=== PATIENT | male | born 1990 | race Caucasian/White ===

== ENCOUNTER → 2016-11-05 | Outpatient (CLI) | payer MEDICARE, MEDICAID ==
[~2016-11-05] MED LIST: /AMLO25TA PO; /NEPHROTA PO; BACITAB3 PO; BACTDSTA PO; COLA50CA3 PO; DARB10SYRN IV; DRIS1CAP PO; DULC5TAB PO; EPOG3000 IJ; FOLI1TAB86 PO; HEPARIN 1,000 UNITS/ML 10ML VIAL (FOR RADIOLOGY& DIALYSIS ONLY) As Ordered ONE; ISOVUE-300 61% 50ML VIAL (Q9967) As Ordered ONE; LOPR50TA PO; MELO7.5S PO; METO25TAB PO; MICA40TA PO; MIDAZOLAM INJ 2 MG/2 ML VIAL (J2250) As Ordered ONE; MINO5SOL6 PO; NORCO, ANEXSIA 5/325MG TABLET (HYDROcodone/ACETAMINOPHEN) As Ordered ONE; NORCO, ANEXSIA 5/325MG TABLET (HYDROcodone/ACETAMINOPHEN) PO PRN; NORMINJ22 IV; NS 1,000 ML IV SCH; OMEP20CA3 PO; ONDANSETRON 4MG/2ML VIAL (J2405) IV PRN; SENS60TA PO; SODIUM BICARBONATE 8.4% INJ 50MEQ 50 ML VIAL As Ordered ONE; TYLE325T5 PO; VANC50VL IV; VELP5CHW PO; VELPHORO PO; VICO5TAB16 PO; VITACAP9 PO; XANA0.25 PO; [UNRECOGNIZED DRUG - CODE] IV; fentaNYL 100 MCG/2 ML INJECTION (J3010) As Ordered ONE; fentaNYL 100 MCG/2 ML INJECTION (J3010) IV PRN
[2016-11-05 11:50] VITALS: BP 153/95
--- NOTE | 2016-11-05 14:06 | REPKIM ---
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 PROCEDURES PERFORMED: 1. Hemodialysis Right Arm Fistulogram 2. Right internal jugular venogram and (central) superior vena cavagram 3. Right brachiocephalic vein angioplasty 4. Completion superior vena cavagram INTERVENTIONALIST: Tricia Kunz MD CONSENT: The risks, benefits and alternatives to the procedure were explained to the patient, and informed written consent was obtained. SEDATION: Sedation and analgesia was provided by the Anesthesiology Dept. MEDICATIONS: Local Lidocaine, Heparin 3000 units IV EBL: 10 mL FLUORO TIME: 11.3 minutes CONTRAST: 80 mL Isovue 300 DEVICE USED: 14mmx 4 cm DIRECTOR PART balloon [id number] PROCEDURE/FINDINGS: The patient was brought to the interventional radiology suite where a timeout procedure was performed. The patient was placed in the supine position. The right forearm was prepped and draped in a usual sterile fashion. The cephalic vein AVF outflow vein just above the elbow was accessed with a micropuncture needle. Using this access a 5-Maltese catheter was introduced with its tip directed towards the central veins. Contrast was injected and fistulogram and central venogram were performed. This showed well developed cephalic outflow vein as well as multiple competing venous collaterals seen in the right upper arm. The cephalic outflow vein showed multiple varices or prominent aneurysmal dilation. The stented portion of the right BCV is reoccluded associated with multiple venous collaterals in the neck region. The right neck was then prepped and draped in a sterile fashion. Ultrasound showed the right IJ vein is very small but patent and compressible. After local anesthetic was established, the right IJ vein was accessed with micropuncture needle and ultrasound guidance. Using this access a 7-Maltese sheath catheter was inserted using the Seldinger technique. Contrast was injected and central venogram was obtained. This showed near occlusive stenosis involving the previously stented right brachiocephalic vein associated with retrograde flow in the internal jugular vein. Using this access, a guidewire was advanced across the BCV stenosis into the right atrium and then into the inferior vena cava. Wire exchange was then performed and a stiff guidewire was then established. A total of 3000 units of Heparin was intravenously administered. The near occlusive right brachiocephalic vein stenosis was dilated with 14mm DIRECTOR PART balloon. Post angioplasty internal jugular central venogram showed excellent results with no significant residual stenosis or flow limiting intimal flap. The right IJ sheath and arm AV fistula catheter were removed and hemostasis was achieved by manual compression over the insertion sites. The patient tolerated the procedure well with no immediate complications. This procedure was performed with ultrasound and fluoroscopic guidance. Dr. Kunz was present. IMPRESSION: 1. ESRD with a patent right arm AVF associated well developed cephalic outflow vein. There are multiple varices or prominent aneurysmal dilation involving the cephalic outflow vein. There are multiple competing venous collaterals in the upper arm. There is near occlusive right BCV (previously stented) associated with multiple venous collaterals seen in the neck region. 2. Central venogram via the right IJ access demonstrates near occlusive stenosis involving the stented right brachiocephalic vein associated with retrograde flow of contrast in the internal jugular vein. Successful dilation of the right brachiocephalic vein with 14mm angioplasty balloon as discussed above. Completion central venogram via the right IJ access demonstrates widely patent BCV/SVC with no significant residual stenosis or flow limiting intimal flap. There is jehovah's witness of antegrade flow of contrast in the internal jugular vein after DIRECTOR PART of the BCV as discussed above. PLAN: Follow-up dialysis shunt maintenance study in 3-5 months. If clinically concerned of the right upper arm cephalic outflow vein varices or relatively significant aneurysmal dilations, this could be treated with covered stent. cc: MD KATHY Levi
== END | disposition home or self-care (01) ==
LOC: M IRPRO 08:24
PROVIDERS: ATTEND Internal Medicine Nephrology
DX: T82.856A Stenosis of peripheral vascular stent, initial encounter (principal); N18.6 End stage renal disease; Z99.2 Dependence on renal dialysis
CPT/HCPCS: 36902; C1725; C1769; C1894; J2250; J3010; Q9967

== ENCOUNTER → 2017-01-21 | Outpatient (CLI) | payer MEDICARE, MEDICAID ==
[~2017-01-21] MED LIST changes: +LIDOCAINE 2% MDV 20 ML VIAL As Ordered ONE; -NORCO, ANEXSIA 5/325MG TABLET (HYDROcodone/ACETAMINOPHEN) As Ordered ONE; -NORCO, ANEXSIA 5/325MG TABLET (HYDROcodone/ACETAMINOPHEN) PO PRN; -NS 1,000 ML IV SCH; -ONDANSETRON 4MG/2ML VIAL (J2405) IV PRN; -SODIUM BICARBONATE 8.4% INJ 50MEQ 50 ML VIAL As Ordered ONE; -fentaNYL 100 MCG/2 ML INJECTION (J3010) IV PRN
[2017-01-21 15:45] VITALS: BP 124/64
--- NOTE | 2017-01-21 18:17 | REPKIM ---
CLINICAL HISTORY: Patient with a history end stage renal disease on hemodialysis via right forearm AV fistula, history of recanalization/stent placement of the right BCV/SVC presents for a right arm fistulogram, central venogram possible intervention. PROCEDURES PERFORMED: 1. Hemodialysis Right Arm Fistulogram 2. Right internal jugular venogram and (central) superior vena cavagram 3. Right brachiocephalic vein angioplasty 4. Completion superior vena cavagram INTERVENTIONALIST: Tricia Kunz MD CONSENT: The risks, benefits and alternatives to the procedure were explained to the patient, and informed written consent was obtained. SEDATION: Sedation and analgesia was provided by the Anesthesiology Dept. MEDICATIONS: Local Lidocaine, Heparin 3000 units IV EBL: 10 mL FLUORO TIME: 6.8 minutes CONTRAST: 80 mL Isovue 300 DEVICE USED: 12mmx 4 cm SPRAY DRIER balloon Lot#[id number] PROCEDURE/FINDINGS: The patient was brought to the interventional radiology suite where a timeout procedure was performed. The patient was placed in the supine position. The right forearm was prepped and draped in a usual sterile fashion. The cephalic vein AVF outflow vein just above the elbow was accessed with a micropuncture needle. Using this access a 5-Australian catheter was introduced with its tip directed towards the central veins. Contrast was injected and fistulogram and central venogram were performed. This showed well developed very tortuous cephalic outflow vein as well as venous collaterals seen in the right upper arm. The cephalic outflow vein showed significant tortuosity with multiple varices or prominent aneurysmal dilation. The stented portion of the right BCV is reoccluded associated with multiple venous collaterals in the neck region. The right neck was then prepped and draped in a sterile fashion. Ultrasound showed the right IJ vein is patent and compressible. After local anesthetic was established, the right IJ vein was accessed with micropuncture needle and ultrasound guidance. Using this access a 7-Australian sheath catheter was inserted using the Seldinger technique. Using this access, a guidewire was successfully advanced across the BCV occlusion into the right atrium and then into the inferior vena cava. Wire exchange was then performed and a stiff guidewire was then established. A total of 3000 units of Heparin was intravenously administered. The occlusive right brachiocephalic vein stenosis was dilated with 12 mm SPRAY DRIER balloon. Post angioplasty central venogram showed restored flow with no significant residual stenosis or flow limiting intimal flap. The right IJ sheath and arm AV fistula catheter were removed and hemostasis was achieved by manual compression over the insertion sites. The patient tolerated the procedure well with no immediate complications. This procedure was performed with ultrasound and fluoroscopic guidance. Dr. Kunz was present. IMPRESSION: 1. ESRD with a patent right arm AVF. The cephalic outflow vein is well developed and markedly tortuous. There are multiple varices or prominent aneurysmal dilation involving the cephalic outflow vein. 2. Complete occlusion of the right BCV associated with multiple venous collaterals seen in the neck region. 3. Successful recanalization and dilation of the right brachiocephalic vein with 12 mm angioplasty balloon as discussed above. Completion central venogram demonstrates restored flow with no significant residual stenosis or flow limiting intimal flap. The SVC is patent. PLAN: Follow-up dialysis shunt maintenance study in 3 months. cc: MD KATHY Levi
== END | disposition home or self-care (01) ==
LOC: M IRPRO 12:01
DX: T82.856A Stenosis of peripheral vascular stent, initial encounter (principal); N18.6 End stage renal disease; Z99.2 Dependence on renal dialysis
CPT/HCPCS: 36011; 36901; 37248; C1725; C1769; C1887; C1894; J2250; J3010; Q9967

== ENCOUNTER → 2017-07-15 | Outpatient (CLI) | payer MEDICARE, MEDICAID ==
[~2017-07-15] MED LIST changes: +BACITAB PO; -BACITAB3 PO; -HEPARIN 1,000 UNITS/ML 10ML VIAL (FOR RADIOLOGY& DIALYSIS ONLY) As Ordered ONE; -LIDOCAINE 2% MDV 20 ML VIAL As Ordered ONE
--- NOTE | 2017-07-23 12:08 | REPIR ---
DATE OF PROCEDURE: 07/15/2017 PREPROCEDURE DIAGNOSES: End stage renal disease, dysfunctional right brachiocephalic arteriovenous fistula. POSTPROCEDURE DIAGNOSES: End stage renal disease, dysfunctional right brachiocephalic arteriovenous fistula. PROCEDURE: Right brachiocephalic arteriovenous fistulogram. SURGEON: Dr. Galen Butler. STOGY MAKER: Pooja Arriaza and Marsha Wu. ANESTHESIA: Local with 1 mL of 2% lidocaine. ESTIMATED BLOOD LOSS: FLUORO TIME: 2.222 minutes. CONTRAST: 18 mL. HEPARIN: None. COMPLICATIONS: None. DRAINS: None. SPECIMENS: None. IMPLANTS: None. 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 Patient now follows up with continued pulsatility within the fistula as well as some increased size of the aneurysmal portion of the cephalic vein. Patient will undergo a fistulogram with possible angioplasty and stent. Risks, benefits and alternative treatment options were discussed with the patient. PROCEDURE: The patient was taken to the angiography suite and placed supine on the angiography room table and then the right upper extremity was prepped and draped in a standard surgical fashion. A time out was then completed confirming the correct patient, procedure and laterality after which the right brachiocephalic arteriovenous fistula was cannulated with a micropuncture needle after anesthetizing the overlying skin with 1% lidocaine. The micropuncture wire was advanced through the micropuncture needle which was upsized to a micropuncture sheath. A fistulogram was performed through the micropuncture sheath showing no intervention was required. The sheath was removed and manual compression applied to deep puncture site for hemostasis. Dressings were then applied. Patient tolerated the procedure well. All instrument, sponge and needle counts were correct at the end of the case. There were no complications. Dr. Butler was present for and directed the entire case. Patient was transferred to the holding area and subsequently discharged in stable condition. RADIOLOGIC SUPERVISION INTERPRETATION: The fistulogram showed the cephalic vein to be widely patent into the subclavian vein. The subclavian vein was patent into the innominate vein where there was occlusion of the innominate vein superior vena junction which had previously been stented.
== END | disposition home or self-care (01) ==
LOC: M IRPRO 11:58
PROVIDERS: ATTEND Surgery Vascular Surgery
DX: T82.898A Other specified complication of vascular prosthetic devices, implants and grafts, initial encounter (principal); N18.6 End stage renal disease; Z99.2 Dependence on renal dialysis
CPT/HCPCS: 36901; C1894; J2250; J3010; Q9967

== ENCOUNTER → 2017-09-11 | Outpatient (CLI) | payer MEDICARE, MEDICAID ==
[~2017-09-11] MED LIST changes: -/AMLO25TA PO; -/NEPHROTA PO; -BACITAB PO; -BACTDSTA PO; -COLA50CA3 PO; -DARB10SYRN IV; -DRIS1CAP PO; -DULC5TAB PO; -EPOG3000 IJ; -FOLI1TAB86 PO; +HEPARIN 1,000 UNITS/ML 10ML VIAL (FOR RADIOLOGY& DIALYSIS ONLY) As Ordered; +ISOVUE-300 61% 50ML VIAL (Q9967) As Ordered; -ISOVUE-300 61% 50ML VIAL (Q9967) As Ordered ONE; -LOPR50TA PO; -MELO7.5S PO; -METO25TAB PO; -MICA40TA PO; +MIDAZOLAM INJ 2 MG/2 ML VIAL (J2250) As Ordered; -MIDAZOLAM INJ 2 MG/2 ML VIAL (J2250) As Ordered ONE; -MINO5SOL6 PO; -NORMINJ22 IV; -OMEP20CA3 PO; -SENS60TA PO; -TYLE325T5 PO; -VANC50VL IV; -VELP5CHW PO; -VELPHORO PO; -VICO5TAB16 PO; -VITACAP9 PO; -XANA0.25 PO; -[UNRECOGNIZED DRUG - CODE] IV; +fentaNYL 100 MCG/2 ML INJECTION (J3010) As Ordered; -fentaNYL 100 MCG/2 ML INJECTION (J3010) As Ordered ONE
== END | disposition home or self-care (01) ==
LOC: M IRPRO 13:03
DX: T82.856A Stenosis of peripheral vascular stent, initial encounter (principal); T82.898A Other specified complication of vascular prosthetic devices, implants and grafts, initial encounter; I82.290 Acute embolism and thrombosis of other thoracic veins; N18.6 End stage renal disease; Z99.2 Dependence on renal dialysis
CPT/HCPCS: 36901

== ENCOUNTER → 2017-09-18 | Outpatient (CLI) | payer MEDICARE, MEDICAID ==
[~2017-09-18] MED LIST changes: +LIDOCAINE 2% MDV 20 ML VIAL As Ordered; +PROTAMINE SULF INJ 50 MG/5 ML VIAL (J2720) As Ordered
== END | disposition home or self-care (01) ==
LOC: M IRPRO 10:04
DX: I82.210 Acute embolism and thrombosis of superior vena cava (principal); I82.290 Acute embolism and thrombosis of other thoracic veins; T82.898A Other specified complication of vascular prosthetic devices, implants and grafts, initial encounter; N18.6 End stage renal disease
CPT/HCPCS: 37248

== ENCOUNTER → 2017-10-02 | Outpatient (CLI) | payer MEDICARE, MEDICAID ==
[~2017-10-02] MED LIST changes: -HEPARIN 1,000 UNITS/ML 10ML VIAL (FOR RADIOLOGY& DIALYSIS ONLY) As Ordered; -ISOVUE-300 61% 50ML VIAL (Q9967) As Ordered; +ISOVUE-370 76% 100ML VIAL (Q9967) As Ordered; -LIDOCAINE 2% MDV 20 ML VIAL As Ordered; -MIDAZOLAM INJ 2 MG/2 ML VIAL (J2250) As Ordered; -PROTAMINE SULF INJ 50 MG/5 ML VIAL (J2720) As Ordered; -fentaNYL 100 MCG/2 ML INJECTION (J3010) As Ordered
== END ==
LOC: M RAD 12:30
DX: N18.6 End stage renal disease (principal); F17.218 Nicotine dependence, cigarettes, with other nicotine-induced disorders; I82.211 Chronic embolism and thrombosis of superior vena cava
CPT/HCPCS: Q9967

== ENCOUNTER 2018-07-02 15:50 | Inpatient (IN) | payer MEDICARE, MEDICAID ==
[2018-07-02 17:10] LABS: BASO % 0.4 % (0.0-1.0); EOS % 0.7 % (0.0-3.0); HEMATOCRIT 32.4 % (42.0-52.0); HEMOGLOBIN 10.9 g/dl (13.5-17.5); IMMATURE GRANULOCYTE % 0.2 % (0-3.0); LYMPH # 0.7 10^3/uL (1.5-4.5); LYMPH % 12.2 % (24.0-44.0); MEAN CORPUSCULAR HEMOGLOBIN 30.5 pg (27.0-33.0); MEAN CORPUSCULAR HGB CONC 33.6 g/dl (32.0-36.5); MEAN CORPUSCULAR VOLUME 90.8 fl (80.0-96.0); MONO # 0.4 10^3/uL (0.0-0.8); MONO % 6.8 % (0.0-5.0); NEUTROPHILS # 4.4 10^3/uL (1.8-7.7); NEUTROPHILS % 79.7 % (36.0-66.0); PLATELET COUNT, AUTOMATED 114 10^3/uL (150-450); RED BLOOD COUNT 3.57 10^6/uL (4.30-6.10); RED CELL DISTRIBUTION WIDTH 12.4 % (11.5-14.5); WHITE BLOOD COUNT 5.6 10^3/uL (4.0-10.0)
[2018-07-02 17:39] LABS: ALBUMIN/GLOBULIN RATIO 1.21 (1.00-1.93); ALKALINE PHOSPHATASE 140 U/L (45-117); ALT/SGPT 13 U/L (12-78); ANION GAP 12 MEQ/L (8-16); AST/SGOT 13 U/L (7-37); BILIRUBIN,DIRECT 0.1 MG/DL (0.0-0.2); BILIRUBIN,TOTAL 0.4 MG/DL (0.2-1.0); BLOOD UREA NITROGEN 39 MG/DL (7-18); CALCIUM LEVEL 7.9 MG/DL (8.5-10.1); CARBON DIOXIDE LEVEL 29 MEQ/L (21-32); CHLORIDE LEVEL 97 MEQ/L (98-107); CREATININE FOR GFR 9.11 MG/DL (0.70-1.30); GLOMERULAR FILTRATION RATE 7.3 (>60); GLUCOSE, FASTING 122 MG/DL (70-100); POTASSIUM SERUM 4.3 MEQ/L (3.5-5.1); SODIUM LEVEL 138 MEQ/L (136-145); TOTAL PROTEIN 7.3 GM/DL (6.4-8.2)
[2018-07-02 17:40] LABS: LACTIC ACID SEPSIS PROTOCOL 2.2 MMOL/L (0.4-2.0)
[2018-07-02] MEDS: PIPERACILLIN/TAZOBACTAM SOD 2.25 GM in D5W MINI-BAG PLUS 50 ML IV (18:32)
[2018-07-02] MEDS ORDERED: CALCIUM CARBONATE 500 MG CHEW U/D PO (19:45)
[2018-07-02] MEDS: PERCOCET 5MG/325MG TAB PO (20:23)
[2018-07-02 22:16] LABS: C REACTIVE PROTEIN QUANTITATIV 1.98 MG/DL (0.00-0.30)
[2018-07-02 22:59] LABS: ERYTHROCYTE SEDIMENTATION RATE 25 mm/hr (0-15)
[2018-07-02] MEDS: APIXABAN 2.5 MG TAB (ELIQUIS) PO (23:03)
[2018-07-03] MEDS: PIPERACILLIN/TAZOBACTAM SOD 3.375 GM in D5W MINI-BAG PLUS 50 ML IV ×2 (03:35→10:04)
[2018-07-03] MEDS: PERCOCET 5MG/325MG TAB PO ×2 (03:38→09:58)
[2018-07-03 05:46] LABS: BASO % 0.7 % (0.0-1.0); EOS # 0.2 10^3/uL (0.0-0.50); EOS % 3.8 % (0.0-3.0); HEMATOCRIT 32.4 % (42.0-52.0); HEMOGLOBIN 10.8 g/dl (13.5-17.5); IMMATURE GRANULOCYTE % 0.2 % (0-3.0); LYMPH # 0.9 10^3/uL (1.5-4.5); LYMPH % 21.7 % (24.0-44.0); MEAN CORPUSCULAR HEMOGLOBIN 30.8 pg (27.0-33.0); MEAN CORPUSCULAR HGB CONC 33.3 g/dl (32.0-36.5); MEAN CORPUSCULAR VOLUME 92.3 fl (80.0-96.0); MONO # 0.4 10^3/uL (0.0-0.8); MONO % 8.8 % (0.0-5.0); NEUTROPHILS # 2.7 10^3/uL (1.8-7.7); NEUTROPHILS % 64.8 % (36.0-66.0); PLATELET COUNT, AUTOMATED 109 10^3/uL (150-450); RED BLOOD COUNT 3.51 10^6/uL (4.30-6.10); RED CELL DISTRIBUTION WIDTH 12.5 % (11.5-14.5); WHITE BLOOD COUNT 4.2 10^3/uL (4.0-10.0)
[2018-07-03] MEDS: ACETAMINOPHEN TAB 650MG DOSE (2X325MG) PO ×2 (06:06→20:40)
[2018-07-03 06:19] LABS: ERYTHROCYTE SEDIMENTATION RATE 19 mm/hr (0-15)
[2018-07-03 06:26] LABS: ALBUMIN 3.6 GM/DL (3.2-5.2); ALBUMIN/GLOBULIN RATIO 1.13 (1.00-1.93); ALKALINE PHOSPHATASE 123 U/L (45-117); ALT/SGPT 11 U/L (12-78); ANION GAP 10 MEQ/L (8-16); AST/SGOT 9 U/L (7-37); BILIRUBIN,TOTAL 0.6 MG/DL (0.2-1.0); BLOOD UREA NITROGEN 42 MG/DL (7-18); C REACTIVE PROTEIN QUANTITATIV 2.08 MG/DL (0.00-0.30); CALCIUM LEVEL 7.3 MG/DL (8.5-10.1); CARBON DIOXIDE LEVEL 28 MEQ/L (21-32); CHLORIDE LEVEL 99 MEQ/L (98-107); CREATININE FOR GFR 9.98 MG/DL (0.70-1.30); GLOMERULAR FILTRATION RATE 6.6 (>60); GLUCOSE, FASTING 86 MG/DL (70-100); MAGNESIUM LEVEL 2.8 MG/DL (1.8-2.4); SODIUM LEVEL 137 MEQ/L (136-145); TOTAL PROTEIN 6.8 GM/DL (6.4-8.2)
[2018-07-03] MEDS: CALCIUM ACETATE 667 MG GELCAP PO ×3 (06:50→18:03)
[2018-07-03] MEDS: APIXABAN 2.5 MG TAB (ELIQUIS) PO ×2 (08:28→20:37)
[2018-07-03] MEDS ORDERED: DARBEPOETIN 100 MCG/0.5 ML *DIALYSIS* SYRINGE (J0882) IV (09:00)
[2018-07-03] MEDS ORDERED: ISOVUE-370 76% 100ML VIAL (Q9967) As Ordered (10:33)
[2018-07-03] MEDS ORDERED: SLF 3 ML SYR IV (10:45)
[2018-07-03 11:26] LABS: PHOSPHORUS LEVEL 5.4 MG/DL (2.5-4.9)
[2018-07-03] MEDS ORDERED: PILL CRUSHER/CUTTER 1 EACH XX (13:45)
[2018-07-03] MEDS: SLF 3 ML SYR IV ×2 (15:22→22:00)
[2018-07-03] MEDS: CALCITRIOL 0.25 MCG CAP (S0169) PO (15:22)
[2018-07-03] MEDS: BUPRENORPHINE/NALOXONE 2-0.5MG SUBLINGUAL TABLET(SUBOXONE) SL (15:22)
[2018-07-03] MEDS: cefTRIAXone SOD 2 GM in D5W MINI-BAG PLUS 50 ML IV (15:22)
[2018-07-04 05:57] LABS: BASO % 0.9 % (0.0-1.0); EOS # 0.2 10^3/uL (0.0-0.50); EOS % 4.2 % (0.0-3.0); HEMATOCRIT 34.1 % (42.0-52.0); HEMOGLOBIN 11.3 g/dl (13.5-17.5); IMMATURE GRANULOCYTE % 0.2 % (0-3.0); LYMPH # 0.7 10^3/uL (1.5-4.5); LYMPH % 17.1 % (24.0-44.0); MEAN CORPUSCULAR HEMOGLOBIN 29.9 pg (27.0-33.0); MEAN CORPUSCULAR HGB CONC 33.1 g/dl (32.0-36.5); MEAN CORPUSCULAR VOLUME 90.2 fl (80.0-96.0); MONO # 0.4 10^3/uL (0.0-0.8); MONO % 9.1 % (0.0-5.0); NEUTROPHILS # 2.9 10^3/uL (1.8-7.7); NEUTROPHILS % 68.5 % (36.0-66.0); PLATELET COUNT, AUTOMATED 124 10^3/uL (150-450); RED BLOOD COUNT 3.78 10^6/uL (4.30-6.10); RED CELL DISTRIBUTION WIDTH 12.4 % (11.5-14.5); WHITE BLOOD COUNT 4.3 10^3/uL (4.0-10.0)
[2018-07-04] MEDS: SLF 3 ML SYR IV ×3 (06:00→20:53)
[2018-07-04 06:25] LABS: ERYTHROCYTE SEDIMENTATION RATE 21 mm/hr (0-15)
[2018-07-04 06:28] LABS: ALBUMIN 3.9 GM/DL (3.2-5.2); ALBUMIN/GLOBULIN RATIO 1.22 (1.00-1.93); ALKALINE PHOSPHATASE 117 U/L (45-117); ALT/SGPT 9 U/L (12-78); ANION GAP 10 MEQ/L (8-16); AST/SGOT 9 U/L (7-37); BILIRUBIN,TOTAL 0.4 MG/DL (0.2-1.0); BLOOD UREA NITROGEN 25 MG/DL (7-18); C REACTIVE PROTEIN QUANTITATIV 1.56 MG/DL (0.00-0.30); CALCIUM LEVEL 8.1 MG/DL (8.5-10.1); CARBON DIOXIDE LEVEL 30 MEQ/L (21-32); CHLORIDE LEVEL 102 MEQ/L (98-107); CREATININE FOR GFR 6.89 MG/DL (0.70-1.30); GLOMERULAR FILTRATION RATE 10.1 (>60); GLUCOSE, FASTING 88 MG/DL (70-100); MAGNESIUM LEVEL 2.6 MG/DL (1.8-2.4); SODIUM LEVEL 142 MEQ/L (136-145); TOTAL PROTEIN 7.1 GM/DL (6.4-8.2)
[2018-07-04] MEDS: CALCIUM ACETATE 667 MG GELCAP PO ×3 (08:20→18:34)
[2018-07-04] MEDS: CALCITRIOL 0.25 MCG CAP (S0169) PO (08:20)
[2018-07-04] MEDS: APIXABAN 2.5 MG TAB (ELIQUIS) PO ×2 (08:20→20:52)
[2018-07-04] MEDS: BUPRENORPHINE/NALOXONE 2-0.5MG SUBLINGUAL TABLET(SUBOXONE) SL (08:21)
[2018-07-04] MEDS: ACETAMINOPHEN TAB 650MG DOSE (2X325MG) PO ×2 (08:23→20:55)
[2018-07-04] MEDS: HEPARIN 1,000 UNITS/ML 10ML VIAL (FOR RADIOLOGY& DIALYSIS ONLY) IV (13:50)
[2018-07-04] MEDS: cefTRIAXone SOD 2 GM in D5W MINI-BAG PLUS 50 ML IV (13:51)
[2018-07-05] MEDS: SLF 3 ML SYR IV (06:00)
[2018-07-05 06:34] LABS: BASO % 0.7 % (0.0-1.0); EOS # 0.2 10^3/uL (0.0-0.50); EOS % 4.4 % (0.0-3.0); IMMATURE GRANULOCYTE % 0.5 % (0-3.0); LYMPH # 1.1 10^3/uL (1.5-4.5); LYMPH % 26.2 % (24.0-44.0); MEAN CORPUSCULAR HEMOGLOBIN 30.1 pg (27.0-33.0); MEAN CORPUSCULAR HGB CONC 32.4 g/dl (32.0-36.5); MEAN CORPUSCULAR VOLUME 92.9 fl (80.0-96.0); MONO # 0.4 10^3/uL (0.0-0.8); MONO % 9.2 % (0.0-5.0); NEUTROPHILS # 2.4 10^3/uL (1.8-7.7); PLATELET COUNT, AUTOMATED 124 10^3/uL (150-450); RED BLOOD COUNT 3.66 10^6/uL (4.30-6.10); RED CELL DISTRIBUTION WIDTH 12.5 % (11.5-14.5); WHITE BLOOD COUNT 4.1 10^3/uL (4.0-10.0)
[2018-07-05 07:03] LABS: ALBUMIN 3.9 GM/DL (3.2-5.2); ALKALINE PHOSPHATASE 112 U/L (45-117); ALT/SGPT 9 U/L (12-78); ANION GAP 9 MEQ/L (8-16); AST/SGOT 13 U/L (7-37); BILIRUBIN,TOTAL 0.4 MG/DL (0.2-1.0); BLOOD UREA NITROGEN 41 MG/DL (7-18); C REACTIVE PROTEIN QUANTITATIV 1.03 MG/DL (0.00-0.30); CALCIUM LEVEL 8.2 MG/DL (8.5-10.1); CARBON DIOXIDE LEVEL 32 MEQ/L (21-32); CHLORIDE LEVEL 100 MEQ/L (98-107); ERYTHROCYTE SEDIMENTATION RATE 22 mm/hr (0-15); GLOMERULAR FILTRATION RATE 7.1 (>60); GLUCOSE, FASTING 90 MG/DL (70-100); MAGNESIUM LEVEL 2.6 MG/DL (1.8-2.4); POTASSIUM SERUM 4.5 MEQ/L (3.5-5.1); SODIUM LEVEL 141 MEQ/L (136-145); TOTAL PROTEIN 6.9 GM/DL (6.4-8.2)
[2018-07-05] MEDS: CALCITRIOL 0.25 MCG CAP (S0169) PO (07:36)
[2018-07-05] MEDS: CALCIUM ACETATE 667 MG GELCAP PO ×2 (07:37→11:57)
[2018-07-05] MEDS: APIXABAN 2.5 MG TAB (ELIQUIS) PO (07:37)
[2018-07-05] MEDS: BUPRENORPHINE/NALOXONE 2-0.5MG SUBLINGUAL TABLET(SUBOXONE) SL (07:37)
[2018-07-05] MEDS: cefTRIAXone SOD 2 GM in D5W MINI-BAG PLUS 50 ML IV (12:00)
== END 2018-07-05 14:46 | disposition home or self-care (01) | DRG 871 ==
LOC: M MSPAV 07-04 12:42 → M ED 15:50 → M ED INP 20:36 → M PCU 22:39
PROC: 5A1D70Z Performance of Urinary Filtration, Intermittent, Less than 6 Hours Per Day (ICD-10-PCS; principal; 2018-07-03)
DX: R78.81 Bacteremia (principal); N18.6 End stage renal disease; N25.81 Secondary hyperparathyroidism of renal origin; N02.8 Recurrent and persistent hematuria with other morphologic changes; S02.609D Fracture of mandible, unspecified, subsequent encounter for fracture with routine healing; B95.4 Other streptococcus as the cause of diseases classified elsewhere; H91.92 Unspecified hearing loss, left ear; D63.1 Anemia in chronic kidney disease; E83.39 Other disorders of phosphorus metabolism; K04.7 Periapical abscess without sinus; Z95.810 Presence of automatic (implantable) cardiac defibrillator; Z99.2 Dependence on renal dialysis; Z95.828 Presence of other vascular implants and grafts; Z79.891 Long term (current) use of opiate analgesic; Z79.01 Long term (current) use of anticoagulants; Z79.899 Other long term (current) drug therapy; W01.0XXD Fall on same level from slipping, tripping and stumbling without subsequent striking against object, subsequent encounter

== ENCOUNTER 2019-10-13 12:08 | Inpatient (IN) | payer MEDICARE, MEDICAID ==
[~2019-10-13] VITALS: Ht 182.9 cm; Wt 65.9 kg
[~2019-10-13 12:08] MED LIST changes: +AURY1TAB PO; +BACITAB PO; +CALC1CAP31 PO; +COLA50CA3 PO; +DARB10SYRN IV; +DRIS1CAP PO; +DRIS50003 PO; +DULC5TAB PO; +ELIQ2.5T PO; +EPOG3000 IJ; +FOLI1TAB86 PO; -ISOVUE-370 76% 100ML VIAL (Q9967) As Ordered; +LOPR50TA PO; +MELO7.5S PO; +METO-346 PO; +MICA40TA PO; +MINO5SOL6 PO; +NEPH1TAB8 PO; +NORMINJ22 IV; +NORV2TAB PO; +OMEP20CA3 PO; +SENS60TA PO; +SUBO2MIS SL; +SULF1TAB23 PO; +TUMS500C PO; +TYLE325T5 PO; +VANC50VL IV; +VELP5CHW PO; +VELPHORO PO; +VICO5TAB17 PO; +VITACAP9 PO; +XANA0.25 PO; +[UNRECOGNIZED DRUG - CODE] IV
[2019-10-13] MEDS: CALCIUM ACETATE 667 MG GELCAP PO SCH ×2 (12:30→17:30)
[2019-10-13] MEDS: (RENVELA) SEVELAMER **CARBONate** 800 MG TAB PO SCH ×2 (12:30→17:30)
[2019-10-13 13:13] LABS: BASO # 0.1 10^3/uL (0.0-0.2); BASO % 1.2 % (0.0-1.0); EOS # 0.3 10^3/uL (0.0-0.5); EOS % 3.6 % (0.0-3.0); HEMATOCRIT 32.2 % (42.0-52.0); HEMOGLOBIN 9.9 g/dl (13.5-17.5); LYMPH # 0.5 10^3/uL (1.5-5.0); LYMPH % 6.2 % (24.0-44.0); MEAN CORPUSCULAR HEMOGLOBIN 29.3 pg (27.0-33.0); MEAN CORPUSCULAR HGB CONC 30.7 g/dl (32.0-36.5); MEAN CORPUSCULAR VOLUME 95.3 fl (80.0-96.0); MONO # 0.5 10^3/uL (0.0-0.8); MONO % 7.2 % (0.0-5.0); NEUTROPHILS # 5.9 10^3/uL (1.5-8.5); NEUTROPHILS % 80.8 % (36.0-66.0); PLATELET COUNT, AUTOMATED 200 10^3/uL (150-450); RED BLOOD COUNT 3.38 10^6/uL (4.30-6.10); WHITE BLOOD COUNT 7.3 10^3/uL (4.0-10.0)
[2019-10-13 13:38] LABS: C REACTIVE PROTEIN QUANTITATIV 7.37 MG/DL (0.00-0.30); CREATININE FOR GFR 12.6 MG/DL (0.70-1.30); POTASSIUM SERUM 5.6 MEQ/L (3.5-5.1)
[2019-10-13 13:40] LABS: ERYTHROCYTE SEDIMENTATION RATE 108 mm/hr (0-15)
[2019-10-13] MEDS ORDERED: VANCOMYCIN HCL 1,250 MG in D5W 250 ML IV ONE (14:00)
[2019-10-13] MEDS ORDERED: VANCOMYCIN HCL 750 MG, VIAL MATE ADAPTER 1 EACH in D5W 250 ML IV ONE (14:15)
[2019-10-13] MEDS ORDERED: HEPARIN SOD (PORCINE) 5000 UNITS/ML VIAL (J1644 PER 1000UNITS) SC SCH (14:45)
[2019-10-13] MEDS ORDERED: MOM 30ML SUSPENSION UDC PO PRN (14:45)
[2019-10-13] MEDS ORDERED: MAALOX 30 ML SUSP *UDC PO PRN (14:45)
[2019-10-13] MEDS ORDERED: VANCOMYCIN HCL 500 MG in D5W MINI-BAG PLUS 100 ML IV ONE (15:00)
[2019-10-13] MEDS ORDERED: SEVE800T3 PO (15:05)
[2019-10-13] MEDS ORDERED: VITA50005 PO (15:05)
[2019-10-13] MEDS ORDERED: CALC667T2 PO (15:05)
[2019-10-13] MEDS ORDERED: CARV6.25 PO (15:05)
--- NOTE | 2019-10-13 15:06 | HPEPDOC ---
General Date of Admission 10/13/19 Date of Service: Oct 13, 2019 Chief Complaint The patient is a 29-year-old male admitted with a reason for visit of Swollen Fistula. Source: Patient Exam Limitations: No limitations Timing/Duration: Other Severity: Mild Associated Symptoms: Other (swelling of right forearm AV fistula site) History of Present Illness This is 29 years old white male with past medical history of end-stage renal disease on hemodialysis Friday, Friday and Friday. IgA nephropathy. 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 Lopez for possible cellulitis of right AV fistula site and possible MRSA bacteremia. Patient complaining of the swelling and discharge oozing out of the site at the right forearm fistula since last few days. No other complaints. He denies any other drug abuse except taken his Suboxone at the present time. But he also refuses to give his urine for drug screening. Note: Patient recently signed out AMA from [facility] in [place] where he was being worked up for MRSA bacteremia Home Medications Scheduled Calcium Acetate (Calcium Acetate) 667 Mg Tablet, 667 MG PO WM, (Reported) Carvedilol (Carvedilol) 6.25 Mg Tablet, 6.25 MG PO BID, (Reported) Ergocalciferol (Vitamin D2) (Vitamin D2) 50,000 Units Cap, 50,000 UNITS PO QWEEK, (Reported) FRIDAYS AFTER DIALYSIS Sevelamer Carbonate (Sevelamer Carbonate) 800 Mg Tablet, 1,600 MG PO WM, (Reported) Allergies Coded Allergies: No Known Allergies (Unverified , 10/13/19) Past Medical History Medical History End-stage renal disease on hemodialysis. IgA nephropathy. SVC thrombosis. Secondary hyperparathyroidism, hyperphosphatemia, deafness drug abuse, b acteremiaMRSA Surgical History Hemithyroidectomy right arm hemodialysis fistula. Right brachial systolic and stent placement Family History Father with history of alcoholism Social History * Smoker: current smoker Alcohol: Denies Drugs: denies A-FIB/CHADSVASC A-FIB History Current/History of A-Fib/PAF?: No Current PO Anticoag Therapy: Yes Review of Systems Constitutional: Denies: Chills, Fever, Malaise, Night Sweats, Weakness, Fatigue, Weight Loss, Lethargy, Other Eyes: Denies: Pain, Vision change ENT: Denies: Head Aches, Ear Pain, Dysphagia Skin: Denies: Rash, Lesions, Jaundice, Bruising, Itching, Dry, Breakdown, Nail Changes, Other Pulmonary: Denies: Dyspnea, Cough, Pleuritic Chest Pain, Other Symptoms Cardiovascular: Denies: Chest Pain, Palpitations, Orthopnea, Paroxysmal Noc. Dyspnea, Edema, Lt Headedness, Other Symptoms Gastrointestinal: Denies: Nausea, Vomiting, Abdominal Pain, Diarrhea, Constipation, Melena, Hematochezia, Other Symptoms Genitourinary: Denies: Dysuria, Frequency, Incontinence, Hematuria, Retention, Other Symptoms Hematologic: Denies: Bruising, Bleeding Excessively, Petecchia, Purpura, Enlarged Lymph Nodes, Other Hematologic Endocrine: Denies: Polydipsia, Polyphagia, Polyuria, Heat Intolerance, Cold Intolerance, Other Endocrine Sx Musculoskeletal: Reports: Other Symptoms (, swelling and discharge from right f orearm fistula site) Neurological: Denies: Weakness, Numbness, Incoordination, Change in speech, Confusion, Seizures, Other Symptoms Psych: Denies: Mood Normal, Anxiety, Depression, Memory Issues, Thoughts of Self Harm, Anger, Thoughts of Harming Other, Other Psych Physical Examination General Exam: Positive: Alert, Cooperative Eye Exam: Positive: PERRLA, Conjunctiva & lids normal, EOMI ENT Exam: Positive: Atraumatic, Mucous membr. moist/pink Neck Exam: Positive: Supple Chest Exam: Positive: Clear to auscultation, Normal air movement Heart Exam: Positive: Rate Normal, Normal S1, Normal S2 Abdomen Exam: Positive: Normal bowel sounds, Soft Extremity Exam: Positive: Other (large, round area of swelling at right forearm abort AV fistula. No blood vessels streaking noted) Neuro Exam: Positive: Strength at 5/5 X4 ext, Sensation Intact Psych Exam: Positive: Mental status NL, Mood NL Vital Signs Vital Signs Date Time Temp Pulse Resp B/P (MAP) Pulse Ox O2 Delivery O2 Flow Rate FiO2 10/13/19 12:09 98.0 105 18 142/92 (109) 100 Room Air Laboratory Data Labs 24H Laboratory Tests 2 10/13/19 12:57: Anion Gap 10, Glomerular Filtration Rate 5.0L, Calcium Level 8.0L, C-Reactive Protein, Quantitative 7.37H 10/13/19 12:59: Lactic Acid Level 1.3 10/13/19 13:00: Immature Granulocyte % (Auto) 1.0, Neutrophils (%) (Auto) 80.8H, Lymphocytes (%) (Auto) 6.2L, Monocytes (%) (Auto) 7.2H, Eosinophils (%) (Auto) 3.6H, Basophils (%) (Auto) 1.2H, Neutrophils # (Auto) 5.9, Lymphocytes # (Auto) 0.5L, Monocytes # (Auto) 0.5, Eosinophils # (Auto) 0.3, Basophils # (Auto) 0.1, Nucleated Red Blood Cells % (auto) 0.0, Erythrocyte Sedimentation Rate 108H CBC/BMP Laboratory Tests 10/13/19 12:57 10/13/19 13:00 Microbiology Microbiology 10/13/19 Blood Culture, Received Pending 10/13/19 Blood Culture, Received Pending 10/13/19 Blood Culture, Received Pending Problems (1) AV fistula infection Status: Acute Problem Text: 29 years old white male presented with a right AV fistula infection. Patient recently signed out AMA from [place] where he was being worked up for MRSA bacteremia. Patient was seen at [facility] and was referred to ER for admissions. Patient received 1 dose of vancomycin in ED and also 3 sets of blood cultures were ordered from the emergency room. Admit patient to Medr floor for further workup Infectious disease consult with Dr. Smiley has been requested for tomorrow Nephrology consult with Dr. Matthews has been requested and call has also been placed in to discuss the case further Continue all patient's home medications Blood cultures 3 were done in ED and also received 1 dose of vancomycin And receives hemodialysis on Friday, Friday and Friday Further, as per nephrology recommendations DVT prophylaxis: Patient is already on anticoagulants Diet renal diet Activity as tolerated (2) History of MRSA infection Status: Acute Problem Text: History of MRSA infection recently treated it [place] where he signed out and he also had extensive workup done there. Unfortunately the records are not available from there. ID consult with Dr. Reddy has been requested Further recommendations for his as per infectious disease Blood cultures were done today, reports pending (3) ESRD on hemodialysis Status: Acute Problem Text: Hemodialysis on a Friday, Friday and Friday Nephrology consult has been requested Continue home meds Plan / VTE VTE Prophylaxis Ordered?: Yes MEGHAN CARRERA MD Oct 13, 2019 15:06
[2019-10-13 15:58] LABS: AMPHETAMINES LEVEL URINE NEGATIVE (NEGATIVE); BARBITURATES URINE NEGATIVE (NEGATIVE); BENZODIAZEPINES URINE POSITIVE (NEGATIVE); CANNABINOIDS URINE NEGATIVE (NEGATIVE); COCAINE METABOLITE URINE NEGATIVE (NEGATIVE); METHADONE URINE NEGATIVE (NEGATIVE); OPIATES URINE POSITIVE (NEGATIVE); PHENCYCLIDINE URINE NEGATIVE (NEGATIVE)
[2019-10-13 16:00] VITALS: BP 147/98
--- NOTE | 2019-10-13 16:09 | REP ---
ULTRASOUND RIGHT FOREARM SOFT TISSUES: Patient has an AV fistula in place in the right forearm. In the region of pain and swelling and redness in the lateral proximal forearm there is a complex fluid collection in the region of the anastomosis of the AV fistula in cephalic vein. The complex fluid collection measures 7.3 x 1.8 x 7.5 cm. An abscess is not excluded. Electronically Signed by Thad Posey MD 10/13/2019 05:05 P
--- NOTE | 2019-10-13 16:16 | REP ---
RIGHT UPPER EXTREMITY, DUPLEX DOPPLER VENOUS ULTRASOUND: Real-time compression and duplex Doppler interrogation of right upper extremity deep venous systems is performed. 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 No thrombus is seen in the right subclavian vein, right axillary or brachial veins. No basilic or cephalic vein thrombosis is seen. There are calcifications seen on the right cephalic vein. Electronically Signed by Thad Posey MD 10/13/2019 05:06 P
[2019-10-13] MEDS: ACETAMINOPHEN TAB 650MG DOSE (2X325MG) PO PRN ×2 (16:17→21:39)
[2019-10-13] MEDS ORDERED: SOD POLYSTYRENE SULFONATE SUSP 15 GM/60 ML UD PO ONE (18:00)
[2019-10-13 20:03] VITALS: BP 142/92
--- NOTE | 2019-10-13 20:38 | DS.PDOC ---
Discharge Summary General Date of Admission Oct 13, 2019 at 14:44 Date of Discharge 10/13/2019 Primary Care Physician: Brandt Ross Attending Physician: MEGHAN CARRERA MD Specialist/Consultants Involve: LOBO IVORY MD @ Specialist/Consultants Involve PROCEDURES PERFORMED DURING STAY: [None]. ADMITTING DIAGNOSES: 1. AV fistula infection DISCHARGE DIAGNOSES: 1. 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 COMPLICATIONS/CHIEF COMPLAINT: Swollen Fistula. HISTORY OF PRESENT ILLNESS: Per HPI " This is 29 years old white male with past medical history of end-stage renal disease on hemodialysis Friday, Friday and Friday. IgA nephropathy. 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 Lopez for possible cellulitis of right AV fistula site and possible MRSA bacteremia. Patient complaining of the swelling and discharge oozing out of the site at the right forearm fistula since last few days. No other complaints. He denies any other drug abuse except taken his Suboxone at the present time. But he also refuses to give his urine for dr hoskins screening. Note: Patient recently signed out AMA from [facility] in [place] where he was being worked up for MRSA bacteremia" HOSPITAL COURSE: The patient was admitted for presumed right AV fistula infection and started on vancomycin. called and requested that the patient be transferred for Vascular surgery evaluation. I examined the patient at 9:15 PM. He reported feeling comfortable but was having some oozing from the fistula; he agreed to transfer to [facility]. DISCHARGE MEDICATIONS: Please see below. ALLERGIES: Please see below. PHYSICAL EXAMINATION ON DISCHARGE: VITAL SIGNS: Please see below. GENERAL: Slim build, well-developed, not in apparent distress HEENT: Normocephalic , mucous members moist and pink CARDIOVASCULAR EXAMINATION: Regular rate and rhythm. No murmurs, rubs or gallops RESPIRATORY EXAMINATION:. Clear to auscultation bilaterally on room air EXTREMITIES: AV fistula at right lower arm is enlarged and red and oozing a small amount of blood PSYCHIATRIC EXAMINATION: Alert and oriented, able to understand and follow all commands LABORATORY DATA: Please see below. IMAGING: RIGHT UPPER EXTREMITY, DUPLEX DOPPLER VENOUS ULTRASOUND: Real-time compression and duplex Doppler interrogation of right upper extremity deep venous systems is performed. 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 No thrombus is seen in the right subclavian vein, right axillary or brachial veins. No basilic or cephalic vein thrombosis is seen. There are calcifications seen on the right cephalic vein. ULTRASOUND RIGHT FOREARM SOFT TISSUES: Patient has an AV fistula in place in the right forearm. In the region of pain and swelling and redness in the lateral proximal forearm there is a complex fluid collection in the region of the anastomosis of the AV fistula in cephalic vein. The complex fluid collection measures 7.3 x 1.8 x 7.5 cm. An abscess is not excluded. PROGNOSIS: Guarded ACTIVITY: [As tolerated]. DIET: Renal DISCHARGE PLAN: Transfer to [facility] DISPOSITION: Transfer DISCHARGE INSTRUCTIONS: 1. The patient will need to be evaluated by vascular surgery. 2. The patient will need a nephrology consult, his schedule usually Friday, Friday, Friday DISCHARGE CONDITION: [Stable]. TIME SPENT ON DISCHARGE: Greater than 35 minutes. Vital Signs/I&Os Vital Signs Date Time Temp Pulse Resp B/P (MAP) Pulse Ox O2 Delivery O2 Flow Rate FiO2 10/13/19 20:03 85 142/92 10/13/19 16:00 97.8 16 95 Room Air Laboratory Data Labs 24H Laboratory Tests 2 10/13/19 12:57: Anion Gap 10, Glomerular Filtration Rate 5.0L, Calcium Level 8.0L, C-Reactive Protein, Quantitative 7.37H 10/13/19 12:59: Lactic Acid Level 1.3 10/13/19 13:00: Immature Granulocyte % (Auto) 1.0, Neutrophils (%) (Auto) 80.8H, Lymphocytes (%) (Auto) 6.2L, Monocytes (%) (Auto) 7.2H, Eosinophils (%) (Auto) 3.6H, Basophils (%) (Auto) 1.2H, Neutrophils # (Auto) 5.9, Lymphocytes # (Auto) 0.5L, Monocytes # (Auto) 0.5, Eosinophils # (Auto) 0.3, Basophils # (Auto) 0.1, Nucleated Red Blood Cells % (auto) 0.0, Erythrocyte Sedimentation Rate 108H 10/13/19 15:27: Urine Opiates Screen POSITIVEH, Urine Methadone Screen NEGATIVE, Urine Barbiturates Screen NEGATIVE, Urine Phencyclidine Screen NEGATIVE, Urine Amphetamines Screen NEGATIVE, Urine Benzodiazepines Screen POSITIVEH, Urine Cocaine Metabolite Screen NEGATIVE, Urine Cannabinoids Screen NEGATIVE CBC/BMP Laboratory Tests 10/13/19 12:57 10/13/19 13:00 Microbiology Microbiology 10/13/19 Blood Culture, Received Pending 10/13/19 Blood Culture, Received Pending 10/13/19 Blood Culture, Received Pending Discharge Medications Scheduled Apixaban (Eliquis) 2.5 Mg Tab, 2.5 MG PO BID, (Reported) Calcium Acetate (Calcium Acetate) 667 Mg Tablet, 667 MG PO WM, (Reported) Carvedilol (Carvedilol) 6.25 Mg Tablet, 6.25 MG PO BID, (Reported) Ergocalciferol (Vitamin D2) (Vitamin D2) 50,000 Units Cap, 50,000 UNITS PO QWEEK, (Reported) FRIDAYS AFTER DIALYSIS Sevelamer Carbonate (Sevelamer Carbonate) 800 Mg Tablet, 1,600 MG PO WM, (Reported) Allergies Coded Allergies: No Known Allergies (Unverified , 10/13/19) JOSE PENNINGTON MD Oct 13, 2019 20:38
[2019-10-13] MEDS ORDERED: DOCUSATE SODIUM 100 MG CAP PO SCH (21:00)
[2019-10-13] MEDS ORDERED: APIXABAN 2.5 MG TAB (ELIQUIS) PO SCH (21:00)
[2019-10-13] MEDS ORDERED: CARVedilol 6.25 MG TAB PO SCH (21:00)
[2019-10-13 21:45] VITALS: BP 140/91
--- NOTE | 2019-10-14 05:41 | CR ---
DATE OF CONSULTATION: 10/13/2019 REQUESTING PHYSICIAN: Dr. Jose Daniel Eubanks REASON FOR CONSULTATION: To assist in the management of end-stage renal disease and associated problems. HISTORY OF PRESENT ILLNESS: Mr. Gasca is a 29 year-old gentleman with multiple chronic medical problems including history of end-stage renal disease, hypertension, superior vena cava (SVC) syndrome, recent history of staph aureus bacteremia, possibly related to arteriovenous (AV) fistula infection with methicillin resistant Staphylococcus aureus (MRSA). The patient was admitted to [facility] about three weeks ago and signed out against medical advice after problems with his fistula and needle placement. He is dialyzed regularly in the [facility] where he has been receiving vancomycin after his dialysis since he came back from the hospital. He reports that swelling on his forearm fistula site has been gradually increasing but I was not informed by the dialysis staff or called by the patient. Today he did not go to dialysis and instead he presented to the emergency room. He got admitted by the hospitalist service. I did get a call from the emergency room physician and have come back to see him this evening. PAST MEDICAL AND SURGICAL HISTORY: Significant for: 1. End-stage renal disease, possibly IgA nephropathy. 2. Hypertension. 3. SVC syndrome related to prior hemodialysis catheters. 4. History of substance abuse. 5. History of severe secondary hyperparathyroidism due the patient noncompliance with diet and medications. 6. History of depression. MEDICATIONS: His home medications include: - Eliquis 2.5 mg twice a day - Suboxone 2/0.5 mg daily - calcitriol 0.25 mcg daily - vitamin D 50,000 units once a week - Palexia 2 tablets three times a day with meals - calcium carbonate 1000 mg with meals ALLERGIES: The patient has NO KNOWN DRUG ALLERGIES. FAMILY HISTORY: There is significant family history for alcohol and drug use. No history for end-stage renal disease in his family. PERSONAL AND SOCIAL HISTORY: The patient has history of substance abuse for several years. He is a smoker but denies any alcohol use. REVIEW OF SYSTEMS: GENERAL: The patient denies any fever or chills. He has history of noncompliance with diet and medications. HEENT/NECK: He has facial and neck edema due to a SVC syndrome. Denies any nosebleeds or sore throat. CARDIOVASCULAR SYSTEM: Significant for hypertension and edema of his neck and face. No lower extremity edema reported. GASTROINTESTINAL (GI) SYSTEM: Negative for vomiting or diarrhea. GENITOURINARY () SYSTEM: Significant for end-stage renal disease. HEMATOLOGICAL SYSTEM: Significant for SVC syndrome and chronic low grade anticoagulation with low-dose Eliquis. PSYCHOSOCIAL SYSTEM: Psychosocial system is significant for depression and chronic substance abuse. NEUROLOGICAL SYSTEM: Negative for seizures. INFECTIOUS SYSTEM: Significant for recent history of MRSA bacteremia. The patient was admitted to [facility] and he signed out AGAINST MEDICAL ADVICE (AMA) before transesophageal echocardiogram (AURELIO) was done. It is not known whether he has endocarditis or not. He has been on intravenous vancomycin after each dialysis since then. PHYSICAL EXAMINATION: GENERAL: This is a young gentleman with facial and neck swelling. VITAL SIGNS: His temperature is 97.8 degrees Fahrenheit, heart rate 80 per minute and respiratory rate 16 per minute. Blood pressure 147/98 mmHg and oxygen saturation 95% on room air. HEENT/NECK: Head is atraumatic. Face is swollen and neck is also swollen with distended superficial veins. HEART: Heart sounds are regular and without a pericardial friction rub. LUNGS: Clear to auscultation. ABDOMEN: Soft and nontender. Bowel sounds are normal. EXTREMITIES: Without any cyanosis or clubbing. On the right forearm he has a large area of swelling and possible abscess. His fistula is functioning but has large aneurysmal dilatations. NEUROLOGY EXAM: Neurologically he is awake, alert and at his baseline mentation. LABORATORY DATA: WBC count 7.3, hemoglobin 9.9 and hematocrit 32.2. Sodium 135, potassium 5.6, CO2 of 30, BUN 62 and creatinine 12.6. Glucose 105, Lactic acid 1.3 and calcium 8.0. C-reactive protein is 7.37. Toxicology positive for opiates screen and benzodiazepines. 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 Ultrasound of the right forearm showed a swelling and redness. There is a collection in the region of anastomosis of the AV fistula and cephalic vein. There is a 7.3 x 1.8 x 7.5 cm which is probably either abscess or pseudoaneurysm. PROBLEMS: 1. End-stage renal disease. The patient is regularly dialyzed on Friday, Friday and Carter schedule. He did miss his dialysis treatment today and we will consider to dialyze him tomorrow. 2. Hyperkalemia. He has chronic noncompliance with diet and dialysis. He did miss his dialysis today. We have already given him one dose of Kayexalate care 30 grams which is adequate at present. We will plan to dialyze him tomorrow if he is still here. 3. Right forearm abscess. He has history of a methicillin resistant Staphylococcus aureus (MRSA) infection recently with bacteremia and has been on intravenous vancomycin after each dialysis since he signed himself out against medical advice from [facility]. He is afebrile and quite concerned about the possibility of abscess in the close proximity to his fistula or possible pseudoaneurysm. Our only vascular surgeon in [facility] is on vacation so there is no vascular surgery coverage. This abscess is quite large and has the risk for rupture. I have discussed with the hospitalist and recommended to transfer the patient to [facility] for vascular surgery intervention. He was already given one dose of vancomycin today in the emergency room. I do not feel that further antibiotic is needed. 4. Hypertension. His blood pressure is reasonably well-controlled and would recommend to continue with current medications. 5. Superior vena cava (SVC) syndrome. This is a chronic issue and multiple attempts have been made by the vascular surgery group in [facility] which have failed to recannulize his superior vena cava. The patient has been referred to [facility] vascular surgery; however, he has not kept his appointments due to noncompliance. Thank you for involving me in the care of Mr. Mckinley.
== END 2019-10-13 22:54 | disposition short-term general hospital (02) | DRG 314 ==
LOC: M ED 12:08 → M ED INP 14:44 → ENRESERV 15:00 → M MSPAV 15:49
PROVIDERS: ADMIT Internal Medicine; ATTEND Internal Medicine
DX: T82.7XXA Infection and inflammatory reaction due to other cardiac and vascular devices, implants and grafts, initial encounter (principal); N18.6 End stage renal disease; I87.1 Compression of vein; N25.81 Secondary hyperparathyroidism of renal origin; I12.0 Hypertensive chronic kidney disease with stage 5 chronic kidney disease or end stage renal disease; Z99.2 Dependence on renal dialysis; Z86.14 Personal history of Methicillin resistant Staphylococcus aureus infection; Z91.14 Patient's other noncompliance with medication regimen; Z91.11 Patient's noncompliance with dietary regimen; F32.5 Major depressive disorder, single episode, in full remission; Z79.01 Long term (current) use of anticoagulants; Z79.899 Other long term (current) drug therapy; F17.200 Nicotine dependence, unspecified, uncomplicated; E87.5 Hyperkalemia

== ENCOUNTER → 2020-04-24 | Emergency (ER) | payer MEDICARE, MEDICAID ==
[~2020-04-24] MED LIST changes: +CALC667T2 PO; +CARV6.25 PO; +CEFTAZIDIME ONE; +FOSR1000 PO; +SEVE800T3 PO; +VITA50005 PO
[2020-06-06 11:09] LABS: INR 1.03; PROTHROMBIN TIME 13.7 SECONDS (12.5-14.3)
[2020-06-08 11:10] LABS: HEMATOCRIT 34.7 % (42.0-52.0); HEMOGLOBIN 11.1 g/dl (13.5-17.5); MEAN CORPUSCULAR HEMOGLOBIN 28.8 pg (27.0-33.0); MEAN CORPUSCULAR VOLUME 90.1 fl (80.0-96.0); PLATELET COUNT, AUTOMATED 188 10^3/uL (150-450); RED BLOOD COUNT 3.85 10^6/uL (4.30-6.10); WHITE BLOOD COUNT 6.1 10^3/uL (4.0-10.0)
== END | disposition other institution (70) ==
LOC: M ED 19:55
DX: T82.7XXA Infection and inflammatory reaction due to other cardiac and vascular devices, implants and grafts, initial encounter (principal); Y92.9 Unspecified place or not applicable; Y93.9 Activity, unspecified; N18.6 End stage renal disease; Z99.2 Dependence on renal dialysis; I25.10 Atherosclerotic heart disease of native coronary artery without angina pectoris; I10 Essential (primary) hypertension
CPT/HCPCS: 76882; 80048; 85027; 85610; 87040; 96374; 99285; J0713

== ENCOUNTER 2020-05-01 13:28 | Inpatient (IN) | payer MEDICARE, MEDICAID ==
[~2020-05-01] VITALS: Ht 182.9 cm; Wt 70.9 kg
[~2020-05-01 13:28] MED LIST changes: -CEFTAZIDIME ONE; -FOSR1000 PO
[2020-05-01] MEDS ORDERED: CARVedilol 6.25 MG TAB PO ONE ×2 (14:30→21:45)
[2020-05-01 14:34] LABS: BASO % 0.6 % (0.0-1.0); EOS # 0.1 10^3/uL (0.0-0.5); EOS % 1.6 % (0.0-3.0); HEMATOCRIT 33.6 % (42.0-52.0); HEMOGLOBIN 11.1 g/dl (13.5-17.5); LYMPH # 0.8 10^3/uL (1.5-5.0); LYMPH % 11.5 % (24.0-44.0); MEAN CORPUSCULAR HEMOGLOBIN 29.4 pg (27.0-33.0); MEAN CORPUSCULAR VOLUME 88.9 fl (80.0-96.0); MONO # 0.5 10^3/uL (0.0-0.8); MONO % 7.2 % (0.0-5.0); NEUTROPHILS # 5.3 10^3/uL (1.5-8.5); NEUTROPHILS % 78.8 % (36.0-66.0); PLATELET COUNT, AUTOMATED 181 10^3/uL (150-450); RED BLOOD COUNT 3.78 10^6/uL (4.30-6.10); WHITE BLOOD COUNT 6.7 10^3/uL (4.0-10.0)
[2020-05-01 14:47] LABS: INR 1.05; PROTHROMBIN TIME 13.9 SECONDS (11.8-14.0)
[2020-05-01] MEDS ORDERED: hydrALAZINE 20MG/ML 1ML VIAL (J0360 PER 20MG) IV STA (14:48)
[2020-05-01 15:18] LABS: CALCIUM LEVEL 8.7 MG/DL (8.5-10.1); CREATININE FOR GFR 19.2 MG/DL (0.70-1.30)
[2020-05-01 15:19] LABS: POTASSIUM SERUM 7.7 MEQ/L (3.5-5.1)
[2020-05-01] MEDS ORDERED: CALCIUM GLUCONATE 1,000 MG in D5W MINI-BAG PLUS 100 ML IV ONE (15:45)
[2020-05-01] MEDS ORDERED: FOSR1000 PO (16:02)
[2020-05-01] MEDS ORDERED: ELIQ2.5T PO (16:02)
[2020-05-01] MEDS ORDERED: LOSARTAN 50MG TABLET PO ONE (21:45)
[2020-05-01 21:50] VITALS: BP 185/112
--- NOTE | 2020-05-01 22:21 | HPEPDOC ---
General Date of Admission May 01, 2020 at 16:27 Date of Service: May 01, 2020 Chief Complaint The patient is a 30-year-old male admitted with a reason for visit of Esrd On Hemodialysis,Hyperkalemia. Source: RN/MD Exam Limitations: Clinical conditions Timing/Duration: Unsure Severity: Severe Associated Symptoms: Unobtainable History of Present Illness 30 y.o ESRD on hemodyalsis and hx of endocarditis (treated in [facility]) presented for emergent dialysis. he missed multiple dialysis appointments and refused dialysis in the past. patient was found unresponsive by a forward air controller/air officer who fo llowed up on a wellness check request [facility]. getting dialysis during exam. lethargic Home Medications Scheduled Apixaban (Eliquis) 2.5 Mg Tablet, 2.5 MG PO BID, (Reported) Calcium Acetate (Calcium Acetate) 667 Mg Tablet, 667 MG PO WM, (Reported) Carvedilol (Carvedilol) 6.25 Mg Tablet, 6.25 MG PO BID, (Reported) Ergocalciferol (Vitamin D2) (Vitamin D2) 50,000 Units Cap, 50,000 UNITS PO QWEEK, (Reported) FRIDAYS AFTER DIALYSIS Lanthanum Carbonate (Fosrenol) 1,000 Mg Tab.chew, 1,000 MG PO WM, (Reported) Allergies Coded Allergies: No Known Allergies (Unverified , 10/13/19) Past Medical History Medical History ESRD onHD hx of endocarditis Surgical History fistula placement Family History Significant Family History: Unable to assess Social History * Smoker: other (nonverbal during exam) Drugs: heroin A-FIB/CHADSVASC A-FIB History Current/History of A-Fib/PAF?: No Current PO Anticoag Therapy: Yes Physical Examination General Exam: Negative: Alert Eye Exam: Positive: Conjunctiva & lids normal ENT Exam: Positive: Atraumatic Neck Exam: Positive: Supple Chest Exam: Positive: Clear to auscultation Heart Exam: Positive: Rate Normal Telemetry: Positive: No significant arrhythmia Abdomen Exam: Positive: BS Hypoactive, Soft Extremity Exam: Positive: Normal pulses Skin Exam: Positive: Nl turgor and temperature Neuro Exam: Positive: Other (encephalopathic) Psych Exam: Negative: Mental status NL Vital Signs Vital Signs Date Time Temp Pulse Resp B/P (MAP) Pulse Ox O2 Delivery O2 Flow Rate FiO2 05/01/20 15:39 228/120 (156) 05/01/20 14:36 97 14 98 Room Air 05/01/20 13:28 98.2 Laboratory Data Labs 24H Laboratory Tests 2 05/01/20 14:07: Immature Granulocyte % (Auto) 0.3, Neutrophils (%) (Auto) 78.8H, Lymphocytes (%) (Auto) 11.5L, Monocytes (%) (Auto) 7.2H, Eosinophils (%) (Auto) 1.6, Basophils (%) (Auto) 0.6, Neutrophils # (Auto) 5.3, Lymphocytes # (Auto) 0.8L, Monocytes # (Auto) 0.5, Eosinophils # (Auto) 0.1, Basophils # (Auto) 0.0, Nucleated Red Blood Cells % (auto) 0.0, Prothrombin Time 13.9, Prothromb Time International Ratio 1.05, Anion Gap 16, Glomerular Filtration Rate 3.0L, Lactic Acid Level 0.5, Calcium Level 8.7 CBC/BMP Laboratory Tests 05/01/20 14:07 Microbiology Microbiology 05/01/20 Blood Culture, Received Pending 05/01/20 Blood Culture, Received Pending Assessment/Plan #Acute renal failure 2/2 noncompliance with HD -Dr. Muñoz managing emergent HD # ESRD on HD -encourage adherance #hx of IV drug abuse with hx of endocarditis -active drug use; surgical plans unlikely dvt: heparin 5000U BID code status: full code Plan / VTE VTE Prophylaxis Ordered?: Yes BRADLEY ROACH DO May 01, 2020 22:21
[2020-05-01] MEDS: APIXABAN 2.5 MG TAB (ELIQUIS) PO SCH (22:30)
[2020-05-02] VITALS (9 sets, daily range): BP systolic 178–210; BP diastolic 100–120
[2020-05-02] MEDS ORDERED: SLF 3 ML SYR IV PRN
[2020-05-02] MEDS ORDERED: CARVedilol 6.25 MG TAB PO STA (00:49)
[2020-05-02] MEDS ORDERED: cloNIDine 0.1 MG TAB PO STA (00:57)
[2020-05-02] MEDS ORDERED: cloNIDine 0.1 MG TAB PO ONE (03:00)
[2020-05-02] MEDS ORDERED: amLODIPine 5 MG TAB PO ONE (04:30)
[2020-05-02] MEDS ORDERED: cloNIDine 0.05MG PER 1/2 TABLET PO ONE (04:45)
[2020-05-02] MEDS ORDERED: hydrALAZINE 20MG/ML 1ML VIAL (J0360 PER 20MG) IV PRN (05:15)
[2020-05-02] MEDS: SLF 3 ML SYR IV SCH ×2 (05:52→14:40)
[2020-05-02] MEDS: LABETALOL 100MG/20ML VIAL IV PRN ×2 (06:49→11:56)
[2020-05-02] MEDS: CALCIUM ACETATE 667MG GELCAP PO SCH ×3 (08:16→18:27)
[2020-05-02] MEDS: LANTHANUM CARBONATE 500 MG CHEW TABLET PO SCH ×3 (08:16→18:27)
[2020-05-02] MEDS: APIXABAN 2.5 MG TAB (ELIQUIS) PO SCH (08:17)
[2020-05-02] MEDS ORDERED: CARVedilol 6.25 MG TAB PO SCH (09:00)
[2020-05-02] MEDS ORDERED: LOSARTAN 50MG TABLET PO SCH (09:00)
[2020-05-02 10:28] LABS: CALCIUM LEVEL 9.4 MG/DL (8.5-10.1); CREATININE FOR GFR 11.7 MG/DL (0.70-1.30); GLOMERULAR FILTRATION RATE 5.4 (>60); POTASSIUM SERUM 4.9 MEQ/L (3.5-5.1)
--- NOTE | 2020-05-02 15:21 | DS.PDOC ---
Discharge Summary General Date of Admission May 01, 2020 at 16:27 Date of Discharge 05/02/20 Discharge Summary PROCEDURES PERFORMED DURING STAY: [None]. ADMITTING DIAGNOSES: 1. [ESRD on HD, Hyperkalemia]. DISCHARGE DIAGNOSES: 1. [ESRD, non compliance with HD, uncontrolled HTN]. COMPLICATIONS/CHIEF COMPLAINT: Esrd On Hemodialysis,Hyperkalemia. HISTORY OF PRESENT ILLNESS: [30 y.o ESRD on hemodyalsis and hx of endocarditis (treated in [facility]) presented for emergent dialysis. he missed multiple dialysis appointments and refused dialysis in the past. patient was found unresponsive by a park police who followed up on a wellness check request [facility] dialysis center. getting dialysis during exam. lethargic]. HOSPITAL COURSE: [pt was admitted for emergent HD as pt is non compliant with his HD regimen. he was also dialysed today. pts BP significantly decreased by HD. He has been cleared by [facility] For DC and out pt HD as of tomorrow . Discussed with dr Muñoz before DC]. DISCHARGE MEDICATIONS: Please see below. ALLERGIES: Please see below. PHYSICAL EXAMINATION ON DISCHARGE: VITAL SIGNS: Please see below. GENERAL: [NL] HEENT: [YOSSI/EOMI] NECK: [Supple] CARDIOVASCULAR EXAMINATION: [S1 S2 regular] RESPIRATORY EXAMINATION: [Clear to A&P] ABDOMINAL EXAMINATION: [Benign] EXTREMITIES: [no CCE] SKIN: [WNL] NEUROLOGICAL EXAMINATION: [No focal motor or sensory deficit] PSYCHIATRIC EXAMINATION: [NL] LABORATORY DATA: Please see below. IMAGING: [None] PROGNOSIS: [Fair] ACTIVITY: [As tolerated]. DIET: [as tolerated] DISCHARGE PLAN: [As per DC instructions] DISPOSITION: .home DISCHARGE INSTRUCTIONS: 1. [as above]. ITEMS TO FOLLOWUP ON ON OUTPATIENT: 1. [as above]. DISCHARGE CONDITION: [Stable]. TIME SPENT ON DISCHARGE: 38 minutes. Vital Signs/I&Os Vital Signs Date Time Temp Pulse Resp B/P (MAP) Pulse Ox O2 Delivery O2 Flow Rate FiO2 05/02/20 12:00 98.2 108 18 190/116 (140) 98 Room Air I&O- Last 24 Hours up to 6 AM 05/02/20 05:59 Intake Total 710 ml Output Total 3500 ml Balance -2790 ml Laboratory Data Labs 24H Laboratory Tests 2 05/02/20 08:28: Methicillin-Resist S.aureus DNA PCR DETECTEDA 05/02/20 09:17: Anion Gap 14, Glomerular Filtration Rate 5.4L, Calcium Level 9.4 CBC/BMP Laboratory Tests 05/02/20 09:17 Microbiology Microbiology 05/01/20 Blood Culture, Received Pending 05/01/20 Blood Culture - Preliminary, Resulted No growth after 24 hours . All specim... Discharge Medications Scheduled Apixaban (Eliquis) 2.5 Mg Tablet, 2.5 MG PO BID, (Reported) Calcium Acetate (Calcium Acetate) 667 Mg Tablet, 667 MG PO WM, (Reported) Carvedilol (Carvedilol) 6.25 Mg Tablet, 6.25 MG PO BID, (Reported) Ergocalciferol (Vitamin D2) (Vitamin D2) 50,000 Units Cap, 50,000 UNITS PO QWEEK, (Reported) FRIDAYS AFTER DIALYSIS Lanthanum Carbonate (Fosrenol) 1,000 Mg Tab.chew, 1,000 MG PO WM, (Reported) Allergies Coded Allergies: No Known Allergies (Unverified , 10/13/19) MEGHAN CARRERA MD May 02, 2020 15:21
--- NOTE | 2020-05-10 14:08 | CR ---
DATE OF CONSULTATION: 05/01/2020 CONSULTATION REPORT FOR: Hospitalist service. REASON FOR CONSULTATION: Severe hyperkalemia in this gentleman with end-stage renal disease and shortness of breath. HISTORY OF PRESENT ILLNESS: Mr. Mckinley is a 30-year-old gentleman with known history of end-stage renal disease requiring maintenance hemodialysis. He has chronic noncompliance with medical care. He has superior vena cava syndrome with generalized edema of his head and neck for the last few years. He is followed by vascular surgery at [facility]. He was recently admitted to [facility], however he signed out against medical advice last week. He was dialyzed on Friday last week at [facility], following which he did not return to outpatient dialysis. Apparently, he was called by dialysis unit staff several times and also [facility] plant protection officer was sent for welfare check, however patient refused to come to dialysis and reported that he was feeling well. Today, he presented to the emergency room at [facility] with marked edema of his head and neck and shortness of breath. His potassium level was found to be 7.1 and BUN was about 200 and creatinine 19. A nephrology consultation was requested for urgent dialysis and patient is seen immediately and arrangements for urgent dialysis are made. PAST MEDICAL AND SURGICAL HISTORY: 1. End-stage renal disease, possibly IgA nephropathy. 2. Hypertension. 3. Superior vena cava syndrome. 4. History of substance abuse. 5. History of severe secondary hyperparathyroidism due to chronic noncompliance. 6. History of depression. 7. History of methicillin-resistant Staphylococcus aureus (MRSA) infection of his right arm arteriovenous (AV) fistula. Past surgical history is significant for multiple procedures for his AV fistula in addition to Permacath placement and removal. He also had a subtotal parathyroidectomy done. MEDICATIONS: Patient has been chronically noncompliant with medications and reports that he was not taking any medications at present. His home medication list included: - Eliquis - Suboxone - vitamin D - calcium carbonate - Renvela - multivitamin ALLERGIES: Patient has no known drug allergies. FAMILY HISTORY: There is significant family history for alcohol and drug use. No history for end-stage renal disease in his family. PERSONAL AND SOCIAL HISTORY: Patient has long history of substance abuse for several years. He is a smoker but denies any alcohol use. REVIEW OF SYSTEMS: At present, patient is in moderate distress. He is able to talk, however his head and neck is mildly swollen. He denies any fevers or chills. Ears are significant for some hearing deficit. He denies any nosebleeds. There is some difficulty swallowing and he has not been eating well for the last few days. Cardiovascular system is significant for superior vena cava syndrome and edema of his head and neck area. No leg edema. Respiratory system is significant for shortness of breath for a few days. Gastrointestinal (GI) system is negative for vomiting or diarrhea. Genitourinary () system is negative for dysuria or hematuria. Endocrine system is negative for diabetes or thyroid problems. He has history of severe secondary hyperparathyroidism. Psychosocial system is significant for depression and noncompliance. Neurological system is significant for neuropathy and headaches. PHYSICAL EXAMINATION: Patient has mildly swollen head and neck. His temperature is 98.2 degrees Fahrenheit, heart rate 97 per minute, and respiratory rate 20 per minute. Blood pressure 210/130 mmHg and oxygen saturation 94% on room air. His head is mildly swollen and neck is also mildly enlarged. Nose and throat are unremarkable. Heart exam reveals tachycardia but no pericardial friction rub. Lungs with few basilar rales. Abdomen is soft and nontender and bowel sounds are normal. Extremities have no cyanosis or clubbing. He has mildly enlarged arteriovenous (AV) fistula on right upper arm. At present there is no drainage from his fistula site. There is minimal edema on his lower extremities. Neurologically he is grossly intact. LABORATORY DATA: WBC count 6.7, hemoglobin 11.1, and hematocrit 33.6. Platelets 181. Sodium 131, potassium 7.7, chloride 98, CO2 17, BUN 168, and creatinine 19.2. Glucose 95 and lactic acid level 0.5. Calcium level is 8.7. INR 1.5. PROBLEMS: 1. Shortness of breath. This is related to volume overload because of noncompliance with dialysis treatment. Apparently, he has not been dialyzed for about a week and had declined to come to outpatient dialysis. We have already made arrangements for urgent dialysis and will remove about 3 liters of fluid today as tolerated. We will plan to dialyze him again tomorrow. 2. Hyperkalemia. He has severe hyperkalemia due to noncompliance with dialysis and dietary noncompliance. We will use 1.0 mEq potassium bath and at least significantly correct his hyperkalemia today, if not completely corrected. He will be dialyzed again tomorrow. 3. End-stage renal disease. Patient has been on maintenance hemodialysis three times a week. He was noncompliant with dialysis and had refused to come for the last week. He will be urgently dialyzed this afternoon and again tomorrow. We will try to get him back on his regular schedule of Friday, Friday, and Friday. 4. Superior vena cava syndrome. This is chronic and he is being followed by Dr. Todd at [facility]. Patient will need to go back and followup with him as an outpatient. Patient has missed several appointments and has history of chronic noncompliance. 5. Hypertension. His blood pressure is quite high right now due to distress and volume overload. He is also noncompliant with medications and was not taking any antihypertensive medications. I will recommend to start with carvedilol and losartan and adjust the dose as needed. I would avoid hydralazine and give him losartan 50 mg tonight and start with carvedilol 6.25 twice a day. Further adjustments will be made on as needed basis. Thank you for involving me in the care of Mr. Mckinley. I will follow him along with you. KATHY
--- NOTE | 2020-05-21 13:32 | ECGEPIP ---
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
--- NOTE | 2020-06-16 15:18 | IPN ---
DATE: 05/02/2020 SUBJECTIVE: Mr. Mckinley is seen this morning at his bedside. He was admitted yesterday with severe shortness of breath and severe hyperkalemia due to noncompliance with dialysis. He had urgent dialysis done last evening and three liters of fluid was removed without any problems. His blood pressure is better this morning but still elevated. He reports that he is feeling 100% better today as well as his dyspnea and swelling of his head and neck. He denies any nausea or vomiting. PHYSICAL EXAMINATION: VITAL SIGNS: Temperature 98.2 degrees Fahrenheit, heart rate 108 per minute and respiratory rate 18 per minute, blood pressure 190/116 mmHg and oxygen saturation 98% on room air. HEENT: His head and neck are still edematous. There is no oral thrush or ulcers. NECK: His neck veins and superficial anterior upper chest veins are quite prominent. HEART: Tachycardic and without pericardial friction rub. LUNGS: Slightly diminished breath sounds and a few basilar rales. ABDOMEN: Soft and nontender. Bowel sounds are normal. EXTREMITIES: Without any cyanosis or clubbing. Right upper arm AV fistula is large size but patent. He does have some edema on his right upper extremity. There is no edema on the lower extremities. NEUROLOGIC: He is awake, alert and oriented x3. LABORATORY DATA: Todays labs shows a sodium level of 135, potassium 4.9, CO2 26, BUN 78 and creatinine 11.7. Glucose 122 and calcium 9.4. PROBLEMS: 1. Hyperkalemia. His hyperkalemia has corrected completely with dialysis yesterday. No other intervention is needed at present. We will dialyze him with 3 mEq of potassium bath today. 2. Volume overload and shortness of breath. His volume status has also improved significantly with 3 liters of fluid removal. We will try to remove another 3 liters today. 3. Hyponatremia. Sodium level has also improved as his hyponatremia was related to volume overload. This will be corrected with dialysis again today. We will plan to dialyze him this afternoon. 4. Hypertension. Blood pressure was quite high yesterday and some improvement is noticed. We initiated some medications yesterday and we will remove another 3 liters of fluid which will help. His medications can be adjusted further after dialysis. The patient has been chronically noncompliant with antihypertensive medications as an outpatient. 5. Disposition: I feel the patient can be discharged to home today or aircraft layout worker tomorrow and he should resume his outpatient dialysis on a regular schedule with Friday, Friday and Friday. KATHY
== END 2020-05-02 19:15 | disposition home or self-care (01) | DRG 682 ==
LOC: M ED 13:28 → M PCU 16:27 → M ED INP 16:27 → M PCU 21:41
PROVIDERS: ADMIT Internal Medicine; ATTEND Internal Medicine
DX: I12.0 Hypertensive chronic kidney disease with stage 5 chronic kidney disease or end stage renal disease (principal); N18.6 End stage renal disease; N25.81 Secondary hyperparathyroidism of renal origin; N17.9 Acute kidney failure, unspecified; I87.1 Compression of vein; E87.5 Hyperkalemia; Z91.15 Patient's noncompliance with renal dialysis; Z79.899 Other long term (current) drug therapy; F32.9 Major depressive disorder, single episode, unspecified; F17.200 Nicotine dependence, unspecified, uncomplicated

== ENCOUNTER → 2024-11-01 | Outpatient (CLI) | payer MEDICARE, MEDICAID ==
[~2024-11-01] MED LIST changes: +ERGO500029 PO; +FOSR1000 PO; +HEPARIN 1,000UNITS/ML 10ML VIAL (FOR RADIOLOGY & DIALYSIS ONLY) As Ordered ONE; +ISOVUE-300 61% 100ML VIAL As Ordered ONE; +LIDOCAINE 1% MDV 20ML VIAL As Ordered ONE; -VITA50005 PO
[2024-11-01 12:05] VITALS: TEMP 97.9
[2024-11-01 12:43] LABS: HEMATOCRIT 42.2 % (42.0-52.0); HEMOGLOBIN 13.8 g/dl (13.5-17.5); MEAN CORPUSCULAR HEMOGLOBIN 31.4 pg (27.0-33.0); MEAN CORPUSCULAR HGB CONC 32.7 g/dl (32.0-36.5); MEAN CORPUSCULAR VOLUME 96.1 fl (80.0-96.0); PLATELET COUNT, AUTOMATED 101 10^3/uL (150-450); RED BLOOD COUNT 4.39 10^6/uL (4.30-6.10); WHITE BLOOD COUNT 2.9 10^3/uL (4.0-10.0)
[2024-11-01] MEDS: NS 250 ML IV SCH (12:46)
[2024-11-01 12:57] LABS: INR 0.96
[2024-11-01 13:02] LABS: CALCIUM LEVEL 8.8 MG/DL (8.5-10.1); CREATININE FOR GFR 5.76 MG/DL (0.70-1.30); GLOMERULAR FILTRATION RATE 11.9 (>60); POTASSIUM SERUM 4.4 MMOL/L (3.5-5.1)
[2024-11-01] MEDS: MIDAZOLAM INJ 2MG/2ML VIAL IV PRN (14:07)
[2024-11-01] MEDS: fentaNYL 100 MCG/2 ML INJECTION IV PRN (14:08)
[2024-11-01] MEDS: HEPARIN SOD (PORCINE) 5000UNITS/ML 1ML VIAL/SYRINGE IV ONE (14:35)
[2024-11-01] MEDS: LIDOCAINE 1% MDV 20ML VIAL SC ONE (14:59)
[2024-11-01] MEDS: ISOVUE-300 61% 100ML VIAL IV ONE (14:59)
[2024-11-01 15:15] VITALS: BP 149/93; O2SAT 100
== END ==
LOC: M IRPRO 11:36
PROVIDERS: ATTEND Internal Medicine Nephrology
DX: N18.6 End stage renal disease (principal)
CPT/HCPCS: 36902; 80048; 85027; 85610; 99152; 99153; C1894; J2250; J3010; Q9967